=== PATIENT | male | born 1960 | race African-American/Black ===

== ENCOUNTER 2021-01-29 13:24 | Emergency (ER) | payer MEDICAID ==
[~2021-01-29] VITALS: Ht 172.7 cm; Wt 81.6 kg
[2021-01-29 13:30] VITALS: BP 170/102
--- NOTE | 2021-01-29 13:39 | NUR ---
PATIENT PRESENTS TO ED WITH LOW BACK PAIN X2 DAYS . PT STATES PAIN IS EXACERBATED WHILE MOVING OR ATTEMPTING TO GET UP FROM SITTING POSITION. DENIES N/V/D; SKIN IS PINK/WARM/DRY; AAOX4 WITH EVEN AND STEADY GAIT; LUNGS CLEAR BL; HR EVEN AND REGULAR; PT DENIES ANY FEVER, CP, SOB, OR COUGH AT THIS TIME; PATIENT STATES PAIN OF 6/10 AT THIS TIME; VSS; PATIENT POSITIONED FOR COMFORT; HOB ELEVATED; BEDRAILS UP X2; BED DOWN. ER MD MADE AWARE OF PT STATUS.
[2021-01-29] MEDS: KETOROLAC 60 MG/2 ML VIAL IM ONE (13:40)
[2021-01-29] MEDS ORDERED: ACET-8386 PO (13:47)
[2021-01-29 14:14] VITALS: BP 170/102
== END 2021-01-29 14:15 | disposition home or self-care (01) ==
LOC: MED 13:24
DX: M54.5 Low back pain (principal); I10 Essential (primary) hypertension
CPT/HCPCS: 81002; 96372; 99283; J1885